=== PATIENT | male | born 1990 | race American Indian/Alaskan Native ===

== ENCOUNTER 2019-07-04 19:44 | Emergency (ER) | payer SELFPAY ==
[2019-07-04 20:53] VITALS: BP 151/93
--- NOTE | 2019-07-04 20:54 | Event Note ---
ED Screening Note Date of service: 07/04/19 Time: 20:51 ED Screening Note: 29 y o presents with back pain x 4 days dysuria This initial assessment/diagnostic orders/clinical plan/treatment(s) is/are subject to change based on patients health status, clinical progression and re- assessment by fellow clinical providers in the ED. Further treatment and workup at subsequent clinical providers discretion. Patient/guardian urged not to elope from the ED as their condition may be serious if not clinically assessed and managed. Initial orders include: ua
[2019-07-04 23:08] LABS: Bacteria,Urine 1+ /HPF (Negative); Bilirubin,Urine NEG (Negative); Blood,Urine SM (Negative); Color,Urine Yellow (Yellow); Mucus,Urine FEW /HPF; Protein,Urine <15 mg/dL mg/dL (Negative); WBC,Urine < 1.0 /HPF (0.0-6.0)
[2019-07-05] MEDS ORDERED: NACL 0.9% 1000 ML 1,000 ML IV ONE (00:06)
--- NOTE | 2019-07-05 00:07 | Emergency Department Report ---
ED Back Pain/Injury HPI - General Chief Complaint: Back Pain/Injury Stated Complaint: LOWER BACK PAIN Time Seen by Provider: 07/04/19 20:50 Source: patient Limitations: No Limitations - History of Present Illness Initial Comments: 29-year-old -[place] male presents to the emergency room for lower back pain 3 days. Patient reports most pain is on the right flank side. Patient denies any trauma. 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 Patient reports some swelling around the penis. Denies any penile discharge or dysuria no nausea no vomiting no fever no abdominal pain. Patient reports drinking sodas and twisting makes the pain worse. She denies currently taking any medication has a past medical history of asthma. Has no known drug allergies MD Complaint: back pain Onset/Timin -: days(s) Similar Symptoms Previously: No Quality: sharp Consistency: intermittent Improves With: none Worsens With: movement Associated Symptoms: denies other symptoms - Related Data Previous Rx's Medication Instructions Recorded Last Taken Type Ibuprofen [Motrin 600 MG tab] 600 mg PO Q8H PRN #30 tablet 07/05/19 Unknown Rx Allergies Allergy/AdvReac Type Severity Reaction Status Date / Time No Known Allergies Allergy Unverified 07/04/19 20:53 ED Review of Systems ROS: Stated complaint: LOWER BACK PAIN Other details as noted in HPI ED Past Medical Hx - Past Medical History Previous Medical History?: Yes Hx Asthma: Yes - Surgical History Past Surgical History?: No - Social History Smoking Status: Never Smoker Substance Use Type: None - Medications Home Medications: Home Medications Medication Instructions Recorded Confirmed Last Taken Type Ibuprofen [Motrin 600 MG tab] 600 mg PO Q8H PRN #30 tablet 07/05/19 Unknown Rx ED Physical Exam - General Limitations: No Limitations General appearance: alert, in no apparent distress - Head Head exam: Present: atraumatic, normocephalic - Eye Eye exam: Present: normal appearance - ENT ENT exam: Present: mucous membranes moist - Neck Neck exam: Present: normal inspection - Respiratory Respiratory exam: Present: normal lung sounds bilaterally. Absent: respiratory distress - Cardiovascular Cardiovascular Exam: Present: regular rate, normal rhythm. Absent: systolic murmur, diastolic murmur, rubs, gallop - GI/Abdominal GI/Abdominal exam: Present: soft, normal bowel sounds - Rectal Rectal exam: Present: deferred - Extremities Exam Extremities exam: Present: normal inspection - Back Exam Back exam: Present: normal inspection - Neurological Exam Neurological exam: Present: alert, oriented X3 - Psychiatric Psychiatric exam: Present: normal affect, normal mood - Skin Skin exam: Present: warm, dry, intact, normal color. Absent: rash ED Course Vital Signs 07/04/19 20:50 Temperature 98.8 F Pulse Rate 89 Respiratory 18 Rate Blood Pressure 151/93 O2 Sat by Pulse 98 Oximetry ED Medical Decision Making - Radiology Data Radiology results: report reviewed Patient: RADHA SALDANA MR#: [id number] : 1990 Acct:[id number] Age/Sex: 29 / M ADM Date: 07/04/19 Loc: ED Attending Dr: Ordering Physician: CLARICE MUNIZ Date of Service: 07/05/19 Procedure(s): CT abdomen pelvis wo con Accession Number(s): [id number] cc: CLARICE MUNIZ CT abdomen pelvis wo con INDICATION: right flank pain with hematuria. TECHNIQUE: All CT scans at this location are performed using the following dose modulation technique: Automated exposure control. CONTRAST: None. COMPARISON: None available. CT abdomen: The parenchymal organs are unremarkable in appearance. Specifically, there is no renal stone or obstruction. Negative for abdominal mass, fluid collection or inflammation. The bowel is not dilated or thickened. A fat-containing umbilical hernia is small. CT PELVIS: The appendix is normal. Negative for distal ureteral stone, pelvic fluid collection or inflammation. IMPRESSION: 1. Negative for obstruction or active inflammation. 2. Small fat-containing umbilical hernia. Signer Name: Pacheco Sadler MD Signed: 07/05/2019 1:20 AM Workstation Name: [id number] Transcribed By: ES Dictated By: Pacheco Sadler MD Electronically Authenticated By: Pacheco Sadler MD Signed Date/Time: 07/05/19119 DD/ 2 TD/TT: - Medical Decision Making 29-year-old -Bur[place] male presents to the emergency room for lower back pain 3 days. Patient reports most pain is on the right flank side. Patient denies any trauma. 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 Patient reports some swelling around the penis. Denies any penile discharge or dysuria no nausea no vomiting no fever no abdominal pain. Patient reports drinking sodas and twisting makes the pain worse. She denies currently taking any medication has a past medical history of asthma. Has no known drug allergies Critical care attestation.: If time is entered above; I have spent that time in minutes in the direct care of this critically ill patient, excluding procedure time. ED Disposition Clinical Impression: Back pain Disposition: DC-01 TO HOME OR SELFCARE Is pt being admited?: No Does the pt Need Aspirin: No Condition: Stable Instructions: Acute Low Back Pain (ED) Additional Instructions: CAT scan is negative for any acute findings. Urinalysis is negative for any acute infections. He did have a little blood in her urine I will refer you to urology for follow-up. Prescriptions: Ibuprofen [Motrin 600 MG tab] 600 mg PO Q8H PRN #30 tablet PRN Reason: Pain Referrals: PRIMARY CAREMD [Primary Care Provider] - 3-5 Days SARA LUCERO MD [Staff Physician] - 3-5 Days Forms: Work/School Release Form(ED)
--- NOTE | 2019-07-05 01:24 | Cat Scan Report ---
CT abdomen pelvis wo con INDICATION: right flank pain with hematuria. TECHNIQUE: All CT scans at this location are performed using the following dose modulation technique: Automated exposure control. CONTRAST: None. COMPARISON: None available. CT abdomen: The parenchymal organs are unremarkable in appearance. Specifically, there is no renal st one or obstruction. Negative for abdominal mass, fluid collection or inflammation. The bowel is not dilated or thickened. A fat-containing umbilical hernia is small. CT PELVIS: The appendix is normal. Negative for distal ureteral stone, pelvic fluid collection or inf lammation. IMPRESSION: 1. Negative for obstruction or active inflammation. 2. Small fat-containing umbilical hernia. Signer Name: Pacheco Sadler MD Signed: 07/05/2019 1:20 AM Workstation Name: [email or web address]
== END 2019-07-05 01:44 | disposition home or self-care (01) ==
LOC: ED 19:44
DX: M54.5 Low back pain (principal); J45.909 Unspecified asthma, uncomplicated; Z79.1 Long term (current) use of non-steroidal anti-inflammatories (NSAID)
CPT/HCPCS: 74176; 81001; 99284; J7030